=== PATIENT | female | born 1950 | race Caucasian/White ===

== ENCOUNTER → 2020-05-15 | Day surgery (SDC) | payer MEDICARE, OTHER ==
[~2020-05-15] MED LIST: DAILY VALUE1 EACH PO; DORZOLAMIDE 2%10 ML EYEBOTH; ELIQUIS5 MG PO; FISH OIL 1,2001 EAC2 PO; FLECAINIDE ACET50 MG PO; FOLIC ACID1 MG PO; LATANOPROST 0.7.5 ML EYEBOTH; LOPRESSOR 25 MG25 MG PO; MAG6464 MG PO; METHOTREXATE T2.5 MG PO; OMEPRAZOLE40 MG PO; POTASSIUM99 M1 PO; PREDNISONE5 MG PO; VITAMIN C250 MG PO; VITAMIN D325 MCG PO; ZINC PO
[2020-05-15 11:08] LABS: HEMOGLOBIN 11.3 gm/dl (12.3-15.3); RED BLOOD COUNT 3.69 M/UL (4.00-5.10); WHITE BLOOD COUNT 11.1 K/UL (4.5-11.0)
[2020-05-15 11:26] LABS: BUN/CREATININE RATIO 23 (0-10)
== END | disposition home or self-care (01) ==
LOC: OR 08:45
PROVIDERS: Nurse Practitioner Family
DX: S42.201A Unspecified fracture of upper end of right humerus, initial encounter for closed fracture (principal); E78.5 Hyperlipidemia, unspecified; I48.91 Unspecified atrial fibrillation; M06.9 Rheumatoid arthritis, unspecified; K21.9 Gastro-esophageal reflux disease without esophagitis; H40.9 Unspecified glaucoma; W00.0XXA Fall on same level due to ice and snow, initial encounter; Z79.01 Long term (current) use of anticoagulants; Z82.49 Family history of ischemic heart disease and other diseases of the circulatory system; Z79.899 Other long term (current) drug therapy; Z20.822 Contact with and (suspected) exposure to COVID-19; Z53.9 Procedure and treatment not carried out, unspecified reason
CPT/HCPCS: 71045; 80048; 81001; 85025; 85610; 86850; 86900; 86901; 87081; 87635; 93005; J2001; J2250; J2704; J3010

== ENCOUNTER 2020-05-16 08:04 | Inpatient (IN) | payer MEDICARE, OTHER ==
[~2020-05-16] VITALS: Ht 165.1 cm; Wt 80.7 kg
[~2020-05-16 08:04] MED LIST changes: -FLECAINIDE ACET50 MG PO
[2020-05-16] MEDS ORDERED: FLECAINIDE ACET50 MG PO (09:19)
[2020-05-16 13:45] LABS: RED BLOOD COUNT 3.61 M/UL (4.00-5.10); WHITE BLOOD COUNT 13.6 K/UL (4.5-11.0)
[2020-05-16 14:09] LABS: BUN/CREATININE RATIO 21 (0-10)
[2020-05-17 03:33] LABS: HEMOGLOBIN 10.1 gm/dl (12.3-15.3); RED BLOOD COUNT 3.33 M/UL (4.00-5.10); WHITE BLOOD COUNT 12.8 K/UL (4.5-11.0)
[2020-05-17 03:54] LABS: BUN/CREATININE RATIO 29 (0-10)
[2020-05-18 11:38] LABS: HEMOGLOBIN 9.9 gm/dl (12.3-15.3); RED BLOOD COUNT 3.23 M/UL (4.00-5.10); WHITE BLOOD COUNT 14.8 K/UL (4.5-11.0)
[2020-05-18 12:01] LABS: BUN/CREATININE RATIO 35 (0-10)
--- NOTE | 2020-05-19 19:20 | NUR ---
CALLED REPORT TO [facility]
[2020-05-20 02:54] LABS: BUN/CREATININE RATIO 28 (0-10)
[2020-05-20] MEDS ORDERED: LOPRESSOR 25 MG25 MG PO (15:51)
== END 2020-05-20 17:30 | disposition home or self-care (01) | DRG 483 ==
LOC: OR 08:04 → M/S 14:03 → OR 05-18 12:48 → M/S 05-18 12:49 → PROG CARE 05-19 22:16
PROVIDERS: Internal Medicine; ADMIT Orthopaedic Surgery
PROC: 0RRJ00Z Replacement of Right Shoulder Joint with Reverse Ball and Socket Synthetic Substitute, Open Approach (ICD-10-PCS; principal; 2020-05-16 08:30)
PROC: B24BZZZ Ultrasonography of Heart with Aorta (ICD-10-PCS; 2020-05-20)
DX: S42.251A Displaced fracture of greater tuberosity of right humerus, initial encounter for closed fracture (principal); I48.20 Chronic atrial fibrillation, unspecified; I48.92 Unspecified atrial flutter; S42.211A Unspecified displaced fracture of surgical neck of right humerus, initial encounter for closed fracture; Z20.822 Contact with and (suspected) exposure to COVID-19; W00.0XXA Fall on same level due to ice and snow, initial encounter; R53.1 Weakness; M06.9 Rheumatoid arthritis, unspecified; I10 Essential (primary) hypertension; R00.2 Palpitations; E78.5 Hyperlipidemia, unspecified; K21.9 Gastro-esophageal reflux disease without esophagitis; H40.9 Unspecified glaucoma; Z79.899 Other long term (current) drug therapy; Y92.9 Unspecified place or not applicable; Y93.9 Activity, unspecified; Z79.01 Long term (current) use of anticoagulants; Z82.49 Family history of ischemic heart disease and other diseases of the circulatory system
CPT/HCPCS: ECHO; 36415; 71045; 73030; 80048; 81001; 83735; 84439; 84443; 85025; 85027; 85610; 86850; 86900; 86901; 87081; 87635; 93005; 93306; C1713; C1776; J0690; J1100; J1160; J2001; J2250; J2270; J2405; J2704; J2710; J2795; J3010; J3370; J7120

== ENCOUNTER → 2020-06-16 | Outpatient (CLI) | payer MEDICARE, OTHER ==
[~2020-06-16] MED LIST changes: +FLECAINIDE ACET50 MG PO
== END ==
LOC: EXRD 04-02 08:30
DX: M81.0 Age-related osteoporosis without current pathological fracture (principal); M85.88 Other specified disorders of bone density and structure, other site
CPT/HCPCS: 77080